=== PATIENT | male | born 1955 | race Caucasian/White ===

== ENCOUNTER → 2021-02-23 10:22 | Outpatient (BNVA) | payer BC, SELFPAY | PROVIDERS: Family Provider Nurse Practitioner Family; PCP Nurse Practitioner Family; Visit Provider Nurse Practitioner Family | DX: I10 Essential (primary) hypertension (principal); Z12.5 Encounter for screening for malignant neoplasm of prostate; Z79.899 Other long term (current) drug therapy; Z13.6 Encounter for screening for cardiovascular disorders; E55.9 Vitamin D deficiency, unspecified; L25.5 Unspecified contact dermatitis due to plants, except food; N40.0 Benign prostatic hyperplasia without lower urinary tract symptoms; F41.9 Anxiety disorder, unspecified; M79.642 Pain in left hand | CPT/HCPCS: 80053; 80061; 81003; 82306; 83036; 84443; 85025; G0103 ==

== ENCOUNTER → 2021-02-27 08:49 | Outpatient (BNVA) | payer BC, SELFPAY | PROVIDERS: Family Provider Nurse Practitioner Family; PCP Nurse Practitioner Family; Visit Provider Nurse Practitioner Family | DX: R53.83 Other fatigue (principal); M79.642 Pain in left hand | CPT/HCPCS: 73130; 82607; 82746; 84425 ==

== ENCOUNTER → 2021-08-14 11:22 | Outpatient (BNVA) | payer MEDICARE, BC, SELFPAY | PROVIDERS: Family Provider Nurse Practitioner Family; PCP Nurse Practitioner Family; Visit Provider Nurse Practitioner Family | DX: R10.31 Right lower quadrant pain (principal) | CPT/HCPCS: 80053; 81003; 85025; G0103 ==

== ENCOUNTER 2022-11-15 09:46 | Outpatient (CLI) | payer MEDICARE, SELFPAY ==
--- NOTE | 2022-11-15 10:12 | US_ITS ---
WS: [id number] RENAL ULTRASOUND HISTORY: STAGE 3A CHRONIC KIDNEY DZ COMPARISON: None available. TECHNIQUE: 2-D and color Doppler imaging of the kidney submitted. Right kidney: 10.4 cm x 4.8 cm x 4.4 cm. Cortex: 1.1 cm Normal echogenicity with no hydronephrosis or mass. Left kidney: 9.8 cm x 4.0 cm x 4.7 cm. Cortex: 1.4 cm Normal echogenicity with no hydronephrosis or mass. Aorta: Normal. Urinary Bladder: Minimally distended bladder. Prostate gland is prominent and heterogeneous measuring 5.6 x 3.7 x 4.8 cm. US/US renal BI* [id number] IMPRESSION: 1. Normal renal ultrasound. 2. Heterogeneous enlarged prostate gland.
== END 2022-11-15 09:47 | disposition home or self-care (01) ==
LOC: RAD 09:55
PROVIDERS: Family Provider Nurse Practitioner Family; Visit Provider Internal Medicine Nephrology
DX: N18.31 Chronic kidney disease, stage 3a (principal); N40.0 Benign prostatic hyperplasia without lower urinary tract symptoms
CPT/HCPCS: 76770